=== PATIENT | male | born 1995 | race Caucasian/White ===

== ENCOUNTER 2017-03-09 19:03 | Observation (INO) | payer OTHER ==
[2017-03-09] MEDS ORDERED: Ondansetron INJ* 2 MG/ML VIAL IV ONE (19:20)
[2017-03-09] MEDS: NS 0.9% 1000 ML* 2,000 ML IV ONE (19:49)
[2017-03-09 20:00] LABS: Hematocrit 46 % (42-52); Hemoglobin 16.1 g/dl (14.0-18.0); Mean Corpuscular HGB Conc 35 g/dl (31-36); Mean Corpuscular Hemoglobin 30 pg (27-31); Mean Corpuscular Volume 85 fL (80-94); Mean Platelet Volume 8 um3 (7.4-10.4); Red Blood Count 5.42 10^6/ul (4.0-5.4); Red Cell Distribution Width 13 % (10.5-15)
[2017-03-09] MEDS ORDERED: Morphine INJ* 4 MG/ML 1 ML CARPUJECT IV ONE ×2 (20:07→20:56)
[2017-03-09 20:28] LABS: ALT 12 U/L (7-52); AST 20 U/L (13-39); Albumin 4.8 g/dL (3.2-5.2); Alkaline Phosphatase 63 U/L (34-104); Anion Gap 10 mmol/L (2-11); BUN/Creatinine Ratio 9.3 (8-20); Blood Urea Nitrogen 9 mg/dL (6-24); C Reactive Protein < 1.00 mg/L (< 5.00); CO2 Carbon Dioxide 27 mmol/L (22-32); Calcium 10.1 mg/dL (8.6-10.3); Chloride 101 mmol/L (101-111); EGFR African American 128.2 (>60); EGFR Non-African American 99.7 (>60); Globulin 2.7 g/dL (2-4); Glucose 104 mg/dL (70-100); Lipase < 10 U/L (11.0-82.0); Potassium 3.8 mmol/L (3.5-5.0); Sodium 138 mmol/L (133-145); Total Protein 7.5 g/dL (6.4-8.9)
--- NOTE | 2017-03-09 20:41 | RAD ---
INDICATION: ] Right upper quadrant pain COMPARISON: None TECHNIQUE: Longitudinal and transverse scans of the right upper quadrant were obtained. Doppler interrogation of the hepatic and portal venous system was performed. FINDINGS: Liver: The liver is normal in size and echogenicity. There are no focal masses. The liver measures 16.4 cm in cephalocaudal dimension. Vessels: There is normal hepatic and portal venous flow. Bile ducts: There is no evidence of intrahepatic or extrahepatic ductal dilatation. The common duct measures 0.3 cm. Gallbladder: The sonographic appearance of the gallbladder is normal. There is no evidence of cholelithiasis, thickening of the gallbladder wall, or pericholecystic fluid. Pancreas: The visualized pancreas appears normal Right kidney: The right kidney is normal in size and echogenicity. There are no masses or calculi. There is no evidence of hydronephrosis. The right kidney measures 10.9 x 4.4 x 5.1 cm. IVC and aorta: The aorta and superior vena cava appear normal. Fluid: There is no ascites. Other: None. IMPRESSION: NEGATIVE EXAMINATION.
--- NOTE | 2017-03-09 20:41 | RAD ---
INDICATION: Right lower quadrant pain COMPARISON: Ultrasound gallbladder same date TECHNIQUE: Real-time scans the right lower quadrant were obtained FINDINGS: The appendix is not identified. There is no mass or free fluid in the right lower quadrant. IMPRESSION: NONDIAGNOSTIC EVALUATION. THE APPENDIX IS NOT IDENTIFIED.
[2017-03-09] MEDS ORDERED: Iohexol 300* (CONTRAST) 10 ML SDV IV ONE (23:02)
[2017-03-10] MEDS ORDERED: Morphine INJ* 4 MG/ML 1 ML CARPUJECT IV PRN (00:21)
[2017-03-10] MEDS ORDERED: Ondansetron INJ* 2 MG/ML VIAL IV PRN ×2 (00:21→14:10)
--- NOTE | 2017-03-10 00:30 | ED ---
Keanu Mora Rebecca, scribed for Kelvin James MD on 03/09/17 at 2005 . Abdominal Pain/Male - HPI Summary HPI Summary: Pt is a 21 y/o M who presents to ED c/o RLQ and periumbilical abdominal pain. Pain began tonight at approximately 1600, 3 hours [employer] and does not radiate into the testicles. Pain is characterized as cramping and is currently moderate, ranked 6/10 though previously was it severe, ranked 8/10. Sx aggravated by walking, alleviated by nothing, unchanged by hyoscyamine. Additionally c/o nausea (resolved) and decreased appetite. Denies fever, chills, diaphoresis and dysuria. No changes to bowel habits. Prior similar episodes intermittently 1x every month since September (except during the summer). Has been evaluated by his PCP for the same symptoms. - History of Current Complaint Chief Complaint: EDAbdPain Stated Complaint: ABD PAIN Time Seen by Provider: 03/09/17 19:49 Hx Obtained From: Patient Onset/Duration: Lasting Hours, Still Present Severity Currently: Moderate Pain Intensity: 6 Pain Scale Used: 0-10 Numeric Location: Discrete At: RLQ Aggravating Factor(s): Nothing Alleviating Factor(s): Nothing Associated Signs And Symptoms: Positive: Decreased Appetite, Nausea. Negative: Diaphoresis, Fever - Allergies/Home Medications Allergies/Adverse Reactions: Allergies Allergy/AdvReac Type Severity Reaction Status Date / Time No Known Allergies Allergy Verified 03/09/17 19:07 PMH/Surg Hx/FS Hx/Imm Hx Previously Healthy: Yes Endocrine/Hematology History: Denies: Hx Diabetes Cardiovascular History: Denies: Hx Coronary Artery Disease, Hx Hypertension Infectious Disease History: No Infectious Disease History: Denies: Traveled Outside the [place] in Last 30 Days - Family History Known Family History: Positive: Cardiac Disease - grandfather, Hypertension - Social History Alcohol Use: None Substance Use Type: Reports: None Smoking Status (MU): Never Smoked Tobacco Review of Systems Negative: Fever, Chills, Skin Diaphoresis Positive: Abdominal Pain, Nausea, Other - Decrease appetite Negative: dysuria All Other Systems Reviewed And Are Negative: Yes Physical Exam - Summary Physical Exam Summary: General: well-appearing, mild pain distress Skin: warm, color reflects adequate perfusion, dry Head: normal Eyes: EOMI, DANIELA ENT: normal Neck: supple, nontender Respiratory: CTA, breath sounds present Cardiovascular: RRR Abdomen: soft, tender in the periumbilical, RLQ and RUQ regions, positive heel strike, positive obturator's sign Bowel: hypoactive Musculoskeletal: normal, strength/ROM intact Neurological: normal, sensory/motor intact, A&O x3 Psychological: affect/mood appropriate Triage Information Reviewed: Yes Vital Signs On Initial Exam: Initial Vitals Temp Pulse Resp BP Pulse Ox 98.2 F 58 16 111/69 100 03/09/17 19:08 03/09/17 19:08 03/09/17 19:08 03/09/17 19:08 03/09/17 19:08 Vital Signs Reviewed: Yes Diagnostics - Vital Signs Vital Signs Temp Pulse Resp BP Pulse Ox 03/09/17 19:30 128/79 03/09/17 19:18 52 97 03/09/17 19:15 124/75 03/09/17 19:08 98.2 F 58 16 111/69 100 - Laboratory Lab Results: Lab Results 03/09/17 03/09/17 03/09/17 Range/Units 19:42 19:42 19:42 WBC 16.0 H (3.5-10.8) 10^3/ul RBC 5.42 H (4.0-5.4) 10^6/ul Hgb 16.1 (14.0-18.0) g/dl Hct 46 (42-52) % MCV 85 (80-94) fL MCH 30 (27-31) pg MCHC 35 (31-36) g/dl RDW 13 (10.5-15) % Plt Count 243 (150-450) 10^3/ul MPV 8 (7.4-10.4) um3 Neut % (Auto) 80.0 (38-83) % Lymph % (Auto) 10.5 L (25-47) % [place] % (Auto) 8.7 (1-9) % Eos % (Auto) 0.5 (0-6) % Baso % (Auto) 0.3 (0-2) % Absolute Neuts (auto) 12.8 H (1.5-7.7) 10^3/ul Absolute Lymphs (auto) 1.7 (1.0-4.8) 10^3/ul Absolute Monos (auto) 1.4 H (0-0.8) 10^3/ul Absolute Eos (auto) 0.1 (0-0.6) 10^3/ul Absolute Basos (auto) 0 (0-0.2) 10^3/ul Absolute Nucleated RBC 0.01 10^3/ul Nucleated RBC % 0.1 INR (Anticoag Therapy) 1.05 (0.89-1.11) APTT 16.8 L (26.0-36.3) seconds Sodium 138 (133-145) mmol/L Potassium 3.8 (3.5-5.0) mmol/L Chloride 101 (101-111) mmol/L Carbon Dioxide 27 (22-32) mmol/L Anion Gap 10 (2-11) mmol/L BUN 9 (6-24) mg/dL Creatinine 0.97 (0.67-1.17) mg/dL Est GFR ( Amer) 128.2 (>60) Est GFR (Non-Af Amer) 99.7 (>60) BUN/Creatinine Ratio 9.3 (8-20) Glucose 104 H (70-100) mg/dL Lactic Acid (0.5-2.0) mmol/L Calcium 10.1 (8.6-10.3) mg/dL Total Bilirubin 1.10 H (0.2-1.0) mg/dL AST 20 (13-39) U/L ALT 12 (7-52) U/L Alkaline Phosphatase 63 (34-104) U/L C-Reactive Protein < 1.00 (< 5.00) mg/L Total Protein 7.5 (6.4-8.9) g/dL Albumin 4.8 (3.2-5.2) g/dL Globulin 2.7 (2-4) g/dL Albumin/Globulin Ratio 1.8 (1-3) Lipase < 10 L (11.0-82.0) U/L 03/09/17 Range/Units 19:42 WBC (3.5-10.8) 10^3/ul RBC (4.0-5.4) 10^6/ul Hgb (14.0-18.0) g/dl Hct (42-52) % MCV (80-94) fL MCH (27-31) pg MCHC (31-36) g/dl RDW (10.5-15) % Plt Count (150-450) 10^3/ul MPV (7.4-10.4) um3 Neut % (Auto) (38-83) % Lymph % (Auto) (25-47) % [place] % (Auto) (1-9) % Eos % (Auto) (0-6) % Baso % (Auto) (0-2) % Absolute Neuts (auto) (1.5-7.7) 10^3/ul Absolute Lymphs (auto) (1.0-4.8) 10^3/ul Absolute Monos (auto) (0-0.8) 10^3/ul Absolute Eos (auto) (0-0.6) 10^3/ul Absolute Basos (auto) (0-0.2) 10^3/ul Absolute Nucleated RBC 10^3/ul Nucleated RBC % INR (Anticoag Therapy) (0.89-1.11) APTT (26.0-36.3) seconds Sodium (133-145) mmol/L Potassium (3.5-5.0) mmol/L Chloride (101-111) mmol/L Carbon Dioxide (22-32) mmol/L Anion Gap (2-11) mmol/L BUN (6-24) mg/dL Creatinine (0.67-1.17) mg/dL Est GFR ( Amer) (>60) Est GFR (Non-Af Amer) (>60) BUN/Creatinine Ratio (8-20) Glucose (70-100) mg/dL Lactic Acid 1.4 (0.5-2.0) mmol/L Calcium (8.6-10.3) mg/dL Total Bilirubin (0.2-1.0) mg/dL AST (13-39) U/L ALT (7-52) U/L Alkaline Phosphatase (34-104) U/L C-Reactive Protein (< 5.00) mg/L Total Protein (6.4-8.9) g/dL Albumin (3.2-5.2) g/dL Globulin (2-4) g/dL Albumin/Globulin Ratio (1-3) Lipase (11.0-82.0) U/L Result Diagrams: 03/09/17 19:42 09/12/17 19:42 Lab Statement: Any lab studies that have been ordered have been reviewed, and results considered in the medical decision making process. - CT CT Abdomen/Pelvis CT Interpretation: Positive (See Comments) - Suspicious for acute appendicitis CT Interpretation Completed By: Radiologist - IO - Ultrasound No standard instances Ultrasound Interpretation: No Acute Changes - Abdomen US: NONDIAGNOSTIC EVALUATION. THE APPENDIX IS NOT IDENTIFIED. ED physician reviewed radiology report and agrees. Gallbladder US: NEGATIVE EXAMINATION. ED physician reviewed radiology report and agrees. Ultrasound Interpretation Completed By: Radiologist - EKG 2026 Cardiac Rate: Bradycardia - 58 bpm EKG Rhythm: Sinus Bradycardia Ectopy: None EKG Interpretation: Early repolarization Re-Evaluation - Re-Evaluation First Eval Re-Evaluation Time: 21:00 Change: Unchanged Comment: Explained his results so far. Continues to experience pain, so he will receive another dose of medication. Abdominal Pain Fem Course/Dx - Course Course Of Treatment: DISCUSSED WITH DR PICHARDO; ADMIT FOR ACUTE APPENDICITIS. NO CRITICAL CARE TIME. Assessment/Plan: Medications reviewed this visit. - Diagnoses Provider Diagnoses: Appendicitis - Provider Notifications Discussed Care Of Patient With: Junaid Pichardo - Admit he will see in the AM Time Discussed With Above Provider: 00:15 Instructed by Provider To: Admit As Inpatient Admit/Transition Orders Completed By ED Provider: Yes Discharge - Discharge Plan Condition: Stable Disposition: ADMITTED TO [facility] Referrals: Non Staff,Doctor [Primary Care Provider] - The documentation as recorded by the Keanu rosado Rebecca accurately reflects the service I personally performed and the decisions made by me, Kelvin James MD.
[2017-03-10] MEDS ORDERED: ceFOXitin 2 GM IVPREMIX* 2 GM/50 ML BAG ONE ×2 (00:35→14:09)
[2017-03-10] MEDS: ceFOXitin 2 GM IVPREMIX* 2 GM/50 ML BAG IVPB SCH ×2 (00:37→09:22)
[2017-03-10 01:07] LABS: Urine Bilirubin Negative (Negative); Urine Glucose Negative (Negative); Urine Nitrite Negative (Negative)
--- NOTE | 2017-03-10 07:47 | RAD ---
CLINICAL HISTORY: Right-sided abdominal pain COMPARISON: Ultrasound dated March 09, 2017 TECHNIQUE: Multiple contiguous axial CT scans were obtained of the abdomen and pelvis after the administration of intravenous contrast. Coronal and sagittal multiplanar reformations are submitted for review. Oral contrast was administered. Delayed images were obtained through the abdomen and pelvis. FINDINGS: LUNG BASES: The lung bases are clear. LIVER: The liver is normal in shape, size, contour, and attenuation. BILE DUCTS: There is no intrahepatic or extrahepatic biliary dilatation. GALLBLADDER: The gallbladder is normal, without pericholecystic inflammatory change. PANCREAS: The pancreas is normal, without mass or ductal dilatation. SPLEEN: Normal in size and appearance. UPPER GI TRACT: Evaluation of the gastrointestinal tract is limited by incomplete gastric distention. The upper GI tract is unremarkable. SMALL BOWEL AND MESENTERY: The small bowel is normal in contour, course, and caliber. There is no obstruction or dilatation. COLON: There is tubular, vermiform, hollow viscus that is blind-ending and originates from the cecum best seen on coronal images 34 through 42. This is mildly dilated measuring up to 0.8 cm in caliber. There is mild wall enhancement and stranding of the adjacent fat. There is no loculated fluid collection to suggest abscess. ADRENALS: Normal bilaterally. KIDNEYS: The kidneys are normal in shape, size, contour, and axis. There is no hydronephrosis or nephrolithiasis. BLADDER: The bladder is smooth in contour. PELVIC ORGANS: The prostate gland is normal. The seminal vesicles are symmetric. AORTA: The aorta is normal. IVC: Unremarkable LYMPH NODES: There is no lymphadenopathy by size criteria. ABDOMINAL WALL: There is no evidence for abdominal wall hernia. BONES AND SOFT TISSUES: The bones and soft tissues are unremarkable. OTHER: None IMPRESSION: POSSIBLE EARLY APPENDICITIS. NO LOCULATED FLUID COLLECTION TO SUGGEST ABSCESS.
[2017-03-10] MEDS ORDERED: Influenza VAC *QUAD* 2017-18* 0.5 ML SYRINGE IM ONE (09:00)
--- NOTE | 2017-03-10 09:35 | SURGPN ---
Subjective - Introduction -: Admission H&P dictated. Patient feels a little better this AM. RLQ pain is still present, but not as severe. Denies nausea, vomiting, fever or chills. NPO - Medications -: Active Medications Generic Name Dose Route Start Last Admin Trade Name Freq PRN Reason Stop Dose Admin Lactated Ringer's 1,000 mls @ 150 mls/hr 03/10/17 01:00 03/10/17 07:03 Lactated Ringers 1000 Ml Bag* IV 150 mls/hr PER RATE JUAN LUIS Administration Cefoxitin Sodium 2 gm in 50 mls @ 100 mls/hr 03/10/17 01:00 03/10/17 09:22 Mefoxin 2gm Ivpremix* IVPB 100 mls/hr Q8H JUAN LUIS Administration Morphine Sulfate 4 mg 03/10/17 00:21 03/10/17 01:36 Morphine Inj (Syringe)* IV 03/10/17 16:22 4 mg Q4H PRN Administration PAIN Ondansetron HCl 4 mg 03/10/17 00:21 Zofran Inj* IV Q4H PRN NAUSEA Objective - Objective -: Awake and alert, appears comfortable and in NAD VSS, afebrile - Intake and Output -: Intake & Output 03/08/17 03/09/17 03/10/17 03/11/17 06:59 06:59 06:59 06:59 Intake Total 948 Output Total 0 800 Balance 948 -800 Weight 130 lb 130 lb Intake: IV Fluids 948 Oral 0 Output: Urine 0 800 Surgical Physical Exam - Comments -: Abdomen soft, non-distended. RLQ tenderness noted, with focal tenderness at Mcburney's point. Positive guarding and rebound tenderness. No masses, hernias or organomegally. For a full exam, please refer to dictated H&P Assessment and Plan - Assessment -: A healthy 21 y/o male with signs and symptoms consistent with acute appendicitis. - Plan Additional Comments: Keep NPO To OR later today for a laparoscopic appendectomy.
--- NOTE | 2017-03-10 10:22 | HP ---
DATE OF ADMISSION: 03/10/17 ATTENDING PHYSICIAN: Dr. Oswaldo Hernandez * (dictated by LAYLA Muir) REASON FOR ADMISSION: Abdominal pain. HISTORY OF PRESENT ILLNESS: David is a pleasant 21-year-old male who presented to the emergency room in late evening hours of 03/09/17 with complaints of progressively worsening abdominal pain. He reports that his pain began the day before, right after lunch time. It started with vague diffuse abdominal cramping, but eventually got sharper and more consistent around his umbilicus. He denied any associated fever or chills; however, he had several episodes of nausea and one episode of vomiting before his ED presentation. He characterized his pain as being crampy and sometimes stabbing, localized to periumbilical and right lower quadrant area. It reached sometimes 8/10 in severity with associated nausea and one episode of vomiting. He had never had any similar complaints in the past. Pain was aggravated by walking and alleviated with rest. 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 He was seen in the ED and had an abdominal ultrasound that failed to reveal his appendix. He went on and had a CT scan of the abdomen and pelvis that revealed findings consistent with possible early appendicitis for which he was admitted for observation overnight. Patient was reevaluated this morning, and he was found to have persistent right lower quadrant abdominal pain for which we were asked to see the patient for further evaluation and to discuss possible surgical intervention. PAST MEDICAL HISTORY: Essentially unremarkable. He is a healthy 21-year-old with no past medical history of any lung, liver, kidney or heart disease. PAST SURGICAL HISTORY: None. CURRENT MEDICATIONS: None. ALLERGIES: He has no known drug allergies. FAMILY HISTORY: Noncontributory. SOCIAL HISTORY: The patient is a nonsmoker, denies alcohol intake, and caffeine intake is minimal. REVIEW OF SYSTEMS: See HPI, otherwise negative. He denies any headache, dizziness, blurred vision or double vision. No chest pain, palpitations, shortness of breath, or difficulty breathing. He denies any back pain, dysuria , flank pain, hematuria, or urinary frequency. He admits to abdominal pain with associated nausea and one episode of vomiting, but denies any changes in bowel habits, fever, chills, night sweats, or recent weight loss. PHYSICAL EXAMINATION GENERAL: He is a pleasant, healthy-appearing, slim young male in no acute distress or discomfort at the time of admission. VITAL SIGNS: Most recent set of vitals revealed temperature of 98.9, blood pressure 124/68, pulse of 75, O2 sat of 100% on room air. HEENT: Sclerae anicteric. PERRLA. EOMs intact. Oropharynx is pink, moist, with no exudate. NECK: Supple. Trachea midline. No cervical adenopathy or thyromegaly. LUNGS: Clear to auscultation bilaterally. There were no rales, wheezes, or rhonchi noted. HEART: Regular rate and rhythm. Normal S1 and S2 without rubs, murmurs, or gallops. BACK: Normal curvature. No CVA tenderness. ABDOMEN: Soft and nondistended. There is moderate right lower quadrant tenderness noted on deep palpation with focal tenderness noted over McBurney's point at the right inguinal area. There is a mild amount of guarding as well as rebound tenderness, but no rigidity noted. No hernias, masses, or hepatosplenomegaly. Basurto's sign was negative. EXTREMITIES: Without cyanosis, clubbing, or edema. RECTAL: Deferred at this time. NEUROLOGIC: Grossly intact. LABORATORY DATA: the patient had a CBC last night that showed white count of 16 ,000, hemoglobin 16, hematocrit 46, and platelets of 243. His chemistry showed sodium 138, potassium 3.8, chloride 101, CO2 27, BUN 9, creatinine 0.97. Remainder of LFTs, amylase, and lipase were all within normal limits. ACCESSORY DIAGNOSTIC DATA: Patient started with abdominal ultrasound with limited right lower sonogram that was non-diagnostic, with the appendix not identified. Then, he went on and had a CT scan of the abdomen and pelvis that showed finding consistent with early acute appendicitis. IMPRESSION: A 21-year-old male with signs and symptoms as well as CT scan findings consistent with acute appendicitis. PLAN: I went on and discussed with the patient proceeding with surgery. He still has persistent right lower quadrant pain on the following morning; however , the pain intensity has subsided a bit since he's been taking narcotics overnight. He no longer complains of any nausea or vomiting. The rationale, indications, risks, and benefits of proceeding with laparoscopic appendectomy were discussed with him today. Risks include but not limited to infection, bleeding, or injury to adjacent structures. He appears to understand and wishes to proceed with surgery. He will be covered prophylactically with antibiotics and we will maintain him NPO, and will likely take him to the operating room later today in anticipation for surgery. LAYLA MUIR [id number]/[facility] #: [id number] OSMAR
[2017-03-10] MEDS ORDERED: Bupivacaine 0.5% SDV PF* 30 ML VIAL ONE (13:45)
[2017-03-10] MEDS ORDERED: Midazolam* 1 MG/ML 2 ML VIAL (2 MG) ONE (14:08)
[2017-03-10] MEDS ORDERED: fentaNYL* 50 MCG/ML 2 ML VIAL (100 MCG VIAL) ONE ×2 (14:08→15:58)
[2017-03-10] MEDS ORDERED: PROCHLORPERAZINE INJ 5 MG/ML 2 ML VIAL IV PRN (14:10)
[2017-03-10] MEDS ORDERED: fentaNYL* 50 MCG/ML 2 ML VIAL (100 MCG VIAL) IV PRN (14:10)
[2017-03-10] MEDS ORDERED: DiMENhydriNATE IV* 50 MG/ML VIAL IV PUSH PRN (14:10)
[2017-03-10] MEDS ORDERED: Propofol* 10 MG/ML 20 ML BTL IV PUSH ONE (14:35)
[2017-03-10] MEDS ORDERED: Famotidine IV* 10 MG/ML 2 ML (20 mg) ONE (14:35)
[2017-03-10] MEDS ORDERED: Ketorolac INJ* 30 MG/ML 1 ML VIAL ONE (14:35)
[2017-03-10] MEDS ORDERED: Dexamethasone IV* 4 MG/ML 1 ML (4 MG) ONE (14:35)
[2017-03-10] MEDS ORDERED: Mivacurium Chloride* 20 MG/10 ML VIAL IV ONE (14:35)
[2017-03-10] MEDS ORDERED: Lidocaine 2% PF * 5 ML VIAL ONE (14:35)
--- NOTE | 2017-03-10 15:26 | SURGPN ---
Brief Operative Note - Surgery Procedures: PRE/POST OP DX: ACUTE APPENDICITIS PROC: LAP APPENDECTOMY SURG: MECENAS ASSIST: NONE ANES: TUCKER/LAURENT EBL: MIN IVF: 600ML LR SPEC: APPENDIX DRAIN/COMPL: NONE COND: STABLE TO RR; EXTUBATED FINDINGS: SUPPURATIVE APPENDICITIS.
[2017-03-10] MEDS ORDERED: Acetaminophen TAB* 325 MG PO PRN (15:33)
[2017-03-10] MEDS ORDERED: HYDROcodone/ACETAMIN 5-325 MG* 1 TAB PO PRN (15:34)
[2017-03-10] MEDS ORDERED: Ibuprofen TAB* 200 MG PO PRN (15:35)
[2017-03-10] MEDS ORDERED: HYDROcodone/ACETAMIN 5-325 MG* 1 TAB ONE (15:58)
[2017-03-10 17:10] VITALS: BP 100/65
--- NOTE | 2017-03-11 04:45 | OP ---
[facility] * DATE OF OPERATION: 03/10/17 - ROOM #352 DATE OF : [birth year] SURGEON: Junaid Pichardo MD [employer]ET[employer] COORDINATOR: None. ANESTHESIOLOGIST: Lawrence Dutta MD ANESTHESIA: General endotracheal. PRE-OP DIAGNOSIS: Acute appendicitis. POST-OP DIAGNOSIS: Acute appendicitis. OPERATIVE PROCEDURE: Laparoscopic appendectomy. ESTIMATED BLOOD LOSS: Minimal. IV FLUIDS: 600 mL crystalloids. SPECIMEN: Appendix. DRAINS: None. COMPLICATIONS: None. COUNTS: Instrument, needle, and sponge counts correct. DESCRIPTION OF PROCEDURE: The patient was brought to the operating room and placed on the table supine. Sequential compression devices were placed on both lower extremities and general anesthesia was administered. His abdomen was prepped and draped in the usual sterile fashion and time-out was performed. Local anesthetic was infiltrated into the skin and soft tissue prior to making each incision. Entry to the abdomen was through a transumbilical vertical incision using an open technique. After accessing the peritoneal cavity, carbon dioxide was insufflated to a pressure of 15 mmHg. Under direct visualization, 5-mm trocars were placed in the suprapubic midline and in the left lower quadrant. The appendix appeared to be dilated with suppurative changes in the right lower quadrant, it was folded upon itself with adhesions to the fold of Treves and these were divided sharply. The appendix base was identified and the mesentery of the appendix was divided with Endo JONAH stapler with a echevarria cartridge and then the appendix was divided at the base with the Endo JONAH stapler with a hawkins cartridge. The endoscopic retrieval bag was used to retrieve the specimen which was submitted to Pathology. Staple lines were inspected and noted to be intact and hemostasis was excellent. Ports were then removed under direct visualization, and carbon dioxide was released. The umbilicus was closed with 0 Polysorb in interrupted fashion to approximate the fascia. Skin incisions were closed with 4-0 Monocryl in subcuticular fashion and then Dermaflex was applied to the wounds. The patient tolerated the procedure well, was extubated and transferred to Recovery in stable condition. [id number]/[facility] #: [id number] [facility]OSPITALShanice
== END 2017-03-10 17:11 | disposition home or self-care (01) ==
LOC: ED 19:03 → SSU 03-10 00:16
PROVIDERS: ADMIT Surgery; ATTEND Surgery
PROC: 0DTJ4ZZ Resection of Appendix, Percutaneous Endoscopic Approach (ICD-10-PCS; principal; 2017-03-10 18:45)
DX: K35.80 Unspecified acute appendicitis (principal); R00.1 Bradycardia, unspecified; Z23 Encounter for immunization; R10.9 Unspecified abdominal pain
CPT/HCPCS: 36415; 74177; 76705; 80053; 81003; 83605; 83690; 85025; 85610; 85730; 86140; 88304; 90471; 90686; 93005; 96374; 96375; 96376; 99284; G0008; G0378; J0694; J1100; J1885; J2250; J2270; J2405; J2704; J3010; Q9967